=== PATIENT | female | born 1945 | race Caucasian/White ===

== ENCOUNTER 2017-05-07 11:11 | Outpatient (CLI) | payer MEDICARE | END 2017-05-07 11:12 | disposition home or self-care (01) | LOC: BICRAD 11:11 | PROVIDERS: ATTEND Nurse Practitioner Acute Care | DX: D45 Polycythemia vera (principal); F17.200 Nicotine dependence, unspecified, uncomplicated; R93.8 Abnormal findings on diagnostic imaging of other specified body structures; J98.59 Other diseases of mediastinum, not elsewhere classified; I70.90 Unspecified atherosclerosis; R06.02 Shortness of breath | CPT/HCPCS: 71046 ==

== ENCOUNTER 2018-02-26 08:02 | Day surgery (SDC) | payer MEDICARE ==
[2018-02-25 15:22] VITALS: BMI 30.2
[2018-02-26] MEDS ORDERED: CEFAZOLIN 2 GM/50 ML BAG ONE (08:52)
[2018-02-26] MEDS ORDERED: Fentanyl 100 MCG/2 ML VIAL ONE ×2 (09:07→11:16)
[2018-02-26] MEDS ORDERED: Midazolam HCl 2 mg/2 ml Vial ONE (09:07)
[2018-02-26 09:34] LABS: Hemoglobin 15.9 g/dL (12.0-16.0); Mean Corpuscular HGB CONC 31.3 g/dL (32.0-36.0); Mean Corpuscular Hemoglobin 25.7 pg (27.0-31.0); Mean Corpuscular Volume 82.1 fL (78.0-98.0); Mean Platelet Volume 8.3 fL (7.4-10.4); Platelet Count 564 thou/uL (130-400); RBC Distribution Width 15.8 % (11.5-14.5); Red Blood Cell (RBC) Count 6.19 mill/uL (4.20-5.40); White Blood Cell (WBC) Count 14.9 thou/uL (4.8-10.8)
[2018-02-26 09:36] LABS: Anion Gap 16 mmol/L (10-20); BUN (Urea Nitrogen) 21 mg/dL (9.8-20.1); Calc. Creatinine Clearance 52 mL/min (70-130); Calcium 9.6 mg/dL (7.8-10.44); Carbon Dioxide 20 mmol/L (23-31); Chloride 105 mmol/L (98-107); Estimated GFR-MDRD 51; Glucose 287 mg/dL (83-110); Potassium 5.3 mmol/L (3.5-5.1); Sodium 136 mmol/L (136-145)
[2018-02-26 09:44] LABS: Prothrombin Time 13.5 SEC (12.0-14.7)
[2018-02-26] MEDS ORDERED: Albuterol Sulfate 2.5 mg/3 ml Neb ONE (09:59)
--- NOTE | 2018-02-26 10:03 | RAD ---
PORTABLE CHEST: Indications: Pre-operative evaluation. Comparison: None available. FINDINGS: There is an abnormal soft tissue mass density seen in the paratracheal region on the right measuring 4.5 to 5.0 cm. There is a calcified granuloma in the peripheral right lung. The lung fitzgerald show no infiltrate or vascular congestion. Mild linear atelectasis in the left lung b ase is noted. Heart size is within normal range. Aortic calcification is prominent. There is a displaced fracture involving the proximal left humerus. IMPRESSION: 1. There is evidence of a soft tissue mass in the paratracheal region in the medial right upper chest . Recommend further evaluation with chest CT. 2. Displaced fracture proximal left humerus has been previously described. 3. Dr. Austin has been paged for notification at the time of this dictation. Code T. Findings discussed with Dr. Austin.
[2018-02-26] MEDS ORDERED: Ketorolac Tromethamine 30 MG/ML VIAL IVP PRN (10:09)
[2018-02-26] MEDS ORDERED: HYDROcodone/Acetaminophen 5/325 mg Tablet PO PRN ×2 (10:09)
[2018-02-26] MEDS ORDERED: Zolpidem Tartrate 5 MG TAB PO PRN (10:09)
[2018-02-26] MEDS ORDERED: Promethazine HCl 25 MG/ML VIAL IM PRN (10:09)
[2018-02-26] MEDS ORDERED: Ondansetron PF 4 MG/2 ML Vial IVP PRN (10:09)
[2018-02-26] MEDS ORDERED: Ropivacaine 0.2% 550 ML 550 ML NERVE BLCK SCH (10:09)
[2018-02-26] MEDS ORDERED: traMADol HCl 50 MG TAB PO PRN ×2 (10:09)
[2018-02-26] MEDS ORDERED: Fentanyl 100 MCG/2 ML VIAL IV PRN (10:13)
[2018-02-26] MEDS ORDERED: Insulin Regular 300 UNITS/3 ML VIAL SC SCH (10:15)
[2018-02-26] MEDS ORDERED: Insulin Regular 300 UNITS/3 ML VIAL ONE (10:25)
[2018-02-26] MEDS ORDERED: Albuterol Sulfate 2.5 mg/3 ml Neb NEB SCH (10:45)
[2018-02-26] MEDS ORDERED: HYDROcodone/Acetaminophen 5/325 mg Tablet ONE (14:31)
--- NOTE | 2018-02-26 14:37 | RAD ---
LEFT SHOULDER THREE VIEWS INTRAOPERATIVE FLUOROSCOPY: History: Shoulder fracture. FINDINGS: Intraoperative fluoroscopy is provided for internal fixation as performed by Dr. Mann. Spot fluo roscopic images show internal fixation hardware in anatomic alignment. Fluoro time: 14.4 seconds. POS: JOHNNY
--- NOTE | 2018-02-26 18:26 | OP ---
DATE OF PROCEDURE: 02/26/2018 PROCEDURE PERFORMED: Open reduction and internal fixation of left proximal humerus fracture. PREOPERATIVE DIAGNOSIS: Left three-part proximal humerus fracture. POSTOPERATIVE DIAGNOSIS: Left three-part proximal humerus fracture. COMPLICATIONS: None. ESTIMATED BLOOD LOSS: 100 mL. [employer]: Minerva Santoro PA-C. IMPLANTS: Synthes proximal humerus plate with locking and nonlocking screws. INDICATIONS: Ms. Fox is a 73-year-old female who fell. She fractured her proximal humerus. She was indicated for open reduction and internal fixation to restore the anatomy of the proximal humerus and promote healing. Risks have been reviewed in detail. She elected to proceed with the operation. DESCRIPTION OF PROCEDURE: Ms. Singh was identified in the preoperative holding area. Her correct extremity was marked. She was carried to the operating room. She was positioned supine. General anesthesia was induced. She was converted to the beach-chair position at 30 degrees. At this point, we prepped and draped the left upper extremity. We then began the procedure with a deltopectoral approach to the shoulder. We dissected down through the subcutaneous tissues to the deltopectoral interval which was incised. At this point, we exposed the underlying fracture fragments. The greater tuberosity was significantly displaced as well as the humeral neck fracture. We irrigated and removed hematoma as well as cleared the bony edges. At this point, the greater tuberosity fracture was reduced using a #5 Ethibond suture back into its anatomic position. We then reduced the anatomic neck fracture and surgical neck fracture. Next, we placed a plate along the lateral cortex. Multiple K-wires were placed, holding the plate as well as the bony reduction. We placed multiple locking and nonlocking screws. We reduced the fracture into its anatomic position as well along this process. We took images confirming plate placement. We then placed our final screws. We thoroughly irrigated with copious lavage. We placed the additional Ethibond suture into the rotator cuff and into the plate for fixation. Finally, closed with 0 Vicryl suture, 2-0 Vicryl suture, and bolivar for the skin. A sterile dressing was applied. The patient was taken to the recovery room in good condition. Job ID: [id number]
== END 2018-02-26 14:58 | disposition home or self-care (01) ==
LOC: SDC 08:02
PROVIDERS: ATTEND Orthopaedic Surgery
PROC: 0PSD04Z Reposition Left Humeral Head with Internal Fixation Device, Open Approach (ICD-10-PCS; principal; 2018-02-26)
DX: S42.252A Displaced fracture of greater tuberosity of left humerus, initial encounter for closed fracture (principal); G56.02 Carpal tunnel syndrome, left upper limb; E11.9 Type 2 diabetes mellitus without complications; I10 Essential (primary) hypertension; I25.10 Atherosclerotic heart disease of native coronary artery without angina pectoris; Z79.82 Long term (current) use of aspirin; Z79.02 Long term (current) use of antithrombotics/antiplatelets; Z79.84 Long term (current) use of oral hypoglycemic drugs; Z79.899 Other long term (current) drug therapy; Z95.5 Presence of coronary angioplasty implant and graft; Z98.890 Other specified postprocedural states; W19.XXXA Unspecified fall, initial encounter
CPT/HCPCS: 23630; 71045; 73060; 76001; 80048; 82962; 85027; 85610; 85730; 93005; 94640; A4306; C1713 ×3; 36416; 93010; J1815; J2250; J2795; J3010; J7611

== ENCOUNTER 2018-04-22 15:34 | Emergency (ER) | payer MEDICARE | END 2018-04-22 17:35 | disposition home health service (06) | LOC: ERS 15:34 | DX: S46.212A Strain of muscle, fascia and tendon of other parts of biceps, left arm, initial encounter (principal); M19.90 Unspecified osteoarthritis, unspecified site; E11.9 Type 2 diabetes mellitus without complications; F17.210 Nicotine dependence, cigarettes, uncomplicated; X50.1XXA Overexertion from prolonged static or awkward postures, initial encounter | CPT/HCPCS: 99283 ==

== ENCOUNTER 2018-04-23 15:07 | Outpatient (CLI) | payer MEDICARE ==
--- NOTE | 2018-04-23 17:40 | MRI ---
LEFT ELBOW MRI WITHOUT IV CONTRAST: 04/23/18 HISTORY: S46.212A - rupture of left biceps tendon. There is some very extensive perimuscular edematous change and posttraumatic fluid density along the entire course of the visualized biceps muscle and myotendinous region and including down somewhat anthony ng the biceps tendon. The biceps tendon itself however, appears intact without evidence for a biceps tendon tear. There is some fairly extensive subcutaneous edema or fluid. No evidence for abnormal mar row signal. The elbow joint itself appears intact, there is some increased signal at the common exten sor tendon insertion region evidence for some partial thickness undersurface tearing. Collateral liga ments appear intact. IMPRESSION: Very extensive subcutaneous and soft tissue edematous changes and swelling of the upper arm as well a s very extensive perimuscular posttraumatic fluid and swelling around the entire biceps muscle with s ome associated intramuscular abnormal signal, particularly extending into the myotendinous region. I favor this being an intramuscular/myotendinous strain. The biceps tendon distally is intact. If there is clinical evidence for biceps muscle dysfunction, consideration for evaluating the upper b iceps tendon and shoulder region might give additional information. Evidence for partial thickness un dersurface tearing and tendinopathy at the common extensor tendon insertion. Intact collateral ligame ntous complexes. No evidence for significant abnormal marrow signal. POS: [facility]
== END 2018-04-23 15:08 | disposition home or self-care (01) ==
LOC: MRI 15:07
PROVIDERS: ATTEND Orthopaedic Surgery
DX: S46.212A Strain of muscle, fascia and tendon of other parts of biceps, left arm, initial encounter (principal); R60.0 Localized edema; M79.89 Other specified soft tissue disorders

== ENCOUNTER 2020-06-24 14:29 | Outpatient (CLI) | payer MEDICARE ==
[2020-06-24 13:46] LABS: #Basophils 0.1 10x3/uL (0.0-0.2); #Eosinphils 0.3 10x3/uL (0.0-0.5); #Monocytes 0.7 10x3/uL (0.0-1.1); #Neutrophils 5.4 10x3/uL (1.5-8.4); %Basophils 1.5 % (0.0-2.0); %Eosinophils 3.3 % (0.0-6.0); %Lymphocytes 23.3 % (18.0-47.0); %Monocytes 7.8 % (0.0-10.0); %Neutrophils 63.3 % (40.0-75.0); Hemoglobin 13.5 g/dL (12.0-15.5); Mean Corpuscular HGB CONC 31.2 g/dL (32.0-36.0); Mean Corpuscular Hemoglobin 27.5 pg (27.0-33.0); Mean Corpuscular Volume 88.2 fl (81.6-98.3); Mean Platelet Volume 10.1 fl (7.4-10.4); Platelet Count 352 10x3/uL (150-450); RBC Distribution Width 17.6 % (11.5-14.5); Red Blood Cell (RBC) Count 4.91 10x6/uL (3.90-5.03); White Blood Cell (WBC) Count 8.6 10x3/uL (3.5-10.5)
[2020-06-24 14:03] LABS: Anion Gap 20 mmol/L (10-20); BUN (Urea Nitrogen) 28 mg/dL (9.8-20.1); Calc. Creatinine Clearance 0 mL/min (70-130); Calcium 9.6 mg/dL (7.8-10.44); Carbon Dioxide 21 mmol/L (23-31); Chloride 101 mmol/L (98-107); Glucose 176 mg/dL (83-110); Potassium 4.4 mmol/L (3.5-5.1); Sodium 138 mmol/L (136-145)
[2020-06-25 01:16] LABS: SARS-CoV-2 PCR by NAA Not Detected (NotDetected)
== END 2020-06-24 14:30 | disposition home or self-care (01) ==
LOC: LABBT 14:29
PROVIDERS: ATTEND Orthopaedic Surgery
DX: Z01.818 Encounter for other preprocedural examination (principal); G56.02 Carpal tunnel syndrome, left upper limb; Z20.822 Contact with and (suspected) exposure to COVID-19
CPT/HCPCS: 80048; 85025; 93005; U0003; U0005; 87635; 93010

== ENCOUNTER 2020-07-11 14:29 | Outpatient (CLI) | payer MEDICARE ==
[2020-07-12 01:18] LABS: SARS-CoV-2 PCR by NAA Not Detected (NotDetected)
== END 2020-07-11 14:30 | disposition home or self-care (01) ==
LOC: LABBT 14:29
PROVIDERS: ATTEND Orthopaedic Surgery
DX: Z01.812 Encounter for preprocedural laboratory examination (principal); G56.02 Carpal tunnel syndrome, left upper limb; Z20.822 Contact with and (suspected) exposure to COVID-19
CPT/HCPCS: U0003; U0005; 87635

== ENCOUNTER 2020-07-14 05:54 | Day surgery (SDC) | payer MEDICARE ==
[2020-07-13 09:51] VITALS: BMI 30.2
[2020-07-14] MEDS ORDERED: Lidocaine 1% w/Epinephrine 1:100K 20 ML VIAL ONE (06:41)
[2020-07-14] MEDS ORDERED: Fentanyl 100 MCG/2 ML VIAL ONE (07:26)
[2020-07-14] MEDS ORDERED: Ondansetron PF 4 MG/2 ML Vial ONE (07:32)
[2020-07-14] MEDS ORDERED: Dexamethasone 20 MG/5 ML VIAL ONE (07:32)
[2020-07-14] MEDS ORDERED: PROPOFOL 200 MG/20 ML VIAL ONE (07:32)
[2020-07-14] MEDS ORDERED: Lidocaine 1% PF 5 ML VIAL ONE (07:32)
== END 2020-07-14 10:10 | disposition home or self-care (01) ==
LOC: SDC 05:54
PROVIDERS: ATTEND Orthopaedic Surgery
PROC: 01N50ZZ Release Median Nerve, Open Approach (ICD-10-PCS; principal; 2020-07-14)
DX: G56.02 Carpal tunnel syndrome, left upper limb (principal); F17.210 Nicotine dependence, cigarettes, uncomplicated; I10 Essential (primary) hypertension; E11.9 Type 2 diabetes mellitus without complications; I25.10 Atherosclerotic heart disease of native coronary artery without angina pectoris; Z79.02 Long term (current) use of antithrombotics/antiplatelets; Z79.82 Long term (current) use of aspirin; Z79.84 Long term (current) use of oral hypoglycemic drugs; Z79.899 Other long term (current) drug therapy
CPT/HCPCS: J0690; J1100; J2405; J2704; J3010

== ENCOUNTER 2020-11-24 12:26 | Outpatient (CLI) | payer MEDICARE | END 2020-11-24 12:27 | disposition home or self-care (01) | LOC: BICCT 12:26 | PROVIDERS: ATTEND Internal Medicine Hematology & Oncology | DX: Z12.2 Encounter for screening for malignant neoplasm of respiratory organs (principal); F17.213 Nicotine dependence, cigarettes, with withdrawal; K76.9 Liver disease, unspecified; N28.9 Disorder of kidney and ureter, unspecified; Z90.49 Acquired absence of other specified parts of digestive tract | CPT/HCPCS: 71271 ==

== ENCOUNTER 2024-02-01 07:52 | Inpatient (IN) | payer MEDICARE ==
[2024-02-01] MEDS ORDERED: Dextrose 5% in Water 1,000 ML IV PRN (12:49)
[2024-02-01] MEDS ORDERED: Ondansetron ODT 4 MG TAB PO PRN (12:49)
[2024-02-01] MEDS ORDERED: Dextrose 50% Abboject 50 ML SYRINGE SLOW IVP PRN (12:49)
[2024-02-01] MEDS ORDERED: Senokot S 8.6-50 MG TAB PO PRN (12:49)
[2024-02-01] MEDS ORDERED: Glucagon 1 MG/ML KIT IM PRN (12:49)
[2024-02-01] MEDS ORDERED: Ketorolac Tromethamine 30 MG (1 mL) VIAL IVP PRN (12:49)
[2024-02-01] MEDS ORDERED: Albuterol 2.5 MG (3 mL) NEB NEB PRN (12:49)
[2024-02-01] MEDS ORDERED: Ondansetron PF 4 MG/2 ML Vial IVP PRN (12:49)
[2024-02-01] MEDS ORDERED: Acetaminophen 650 MG Suppository PR PRN (12:49)
[2024-02-01] MEDS ORDERED: Calcium Carbonate 500 MG ChewTAB PO PRN (12:49)
[2024-02-01] MEDS ORDERED: Nicotine 21 MG PATCH TD PRN (13:10)
[2024-02-01 13:52] VITALS: BMI 29.0
[2024-02-01] MEDS: methylPREDNISolone Sod Succ 40 MG VIAL IVP SCH (14:16)
[2024-02-01] MEDS: Enoxaparin 40 MG (0.4 mL) SYRINGE SC SCH (14:16)
[2024-02-01] MEDS: Ipratropium/Albuterol 3 ML NEB NEB SCH (14:54)
[2024-02-01 16:05] LABS: Legionella Urinary Ag Negative (Negative); Strep pneumo Urine Ag NEGATIVE (NEGATIVE)
[2024-02-01] MEDS: Insulin Lispro 100 UNIT/ML 10 ML VIAL SC PRN ×2 (17:15→21:42)
[2024-02-01] MEDS: Azithromycin 500 MG in Sodium Chloride 0.9% 250 ML 250 ML IVPB SCH (17:15)
[2024-02-01] MEDS: Acetaminophen 325 MG TAB PO PRN (17:16)
[2024-02-01] MEDS: Arformoterol 15 MCG/2 ML NEB NEB SCH (18:48)
[2024-02-01] MEDS: guaiFENesin ER 600 MG TAB PO SCH (21:42)
[2024-02-01] MEDS: Famotidine 20 MG TAB PO SCH (21:42)
[2024-02-02 04:27] LABS: #Basophils 0.09 10x3/uL (0.0-0.2); #Eosinophils Less than 0.03 10x3/uL (0.0-0.7); %Basophils 0.4 % (0.0-1.0); %Lymphocytes 3.2 % (21.0-51.0); %Monocytes 2.7 % (0.0-10.0); %Neutrophils 90.2 % (42.0-75.0); Hematocrit 44.8 % (36.0-47.0); Hemoglobin 14.4 g/dL (12.0-16.0); Mean Corpuscular HGB CONC 32.1 g/dL (32.0-36.0); Mean Corpuscular Hemoglobin 31.8 pg (27.0-31.0); Mean Corpuscular Volume 98.9 fL (78.0-98.0); Mean Platelet Volume 10.5 fL (7.4-10.4); Platelet Count 692 10x3/uL (130-400); RBC Distribution Width 16.9 % (11.5-14.5); Red Blood Cell (RBC) Count 4.53 mill/uL (4.20-5.40)
[2024-02-02 04:49] LABS: Anion Gap 14 mmol/L (10-20); BUN (Urea Nitrogen) 31 mg/dL (9.8-20.1); Calc. Creatinine Clearance 40 mL/min (70-130); Calcium 9.4 mg/dL (7.8-10.44); Carbon Dioxide 23 mmol/L (23-31); Chloride 104 mmol/L (98-107); Estimated GFR 46; Glucose 368 mg/dL (83-110); Potassium 4.8 mmol/L (3.5-5.1); Sodium 136 mmol/L (136-145)
[2024-02-02] MEDS: Enoxaparin 40 MG (0.4 mL) SYRINGE SC SCH (08:53)
[2024-02-02] MEDS: Famotidine 20 MG TAB PO SCH (08:54)
[2024-02-02] MEDS: Aspirin 81 mg Enteric Coated Tablet PO SCH (08:54)
[2024-02-02] MEDS: glipiZIDE XL 10 mg ER.TAB PO SCH (08:54)
[2024-02-02] MEDS: Clopidogrel Bisulfate 75 MG TAB PO SCH (08:54)
[2024-02-02] MEDS: Insulin Glargine 30 UNITS/0.3 ML VIAL SC SCH (11:11)
[2024-02-02] MEDS: Insulin Lispro 100 UNIT/ML 10 ML VIAL SC PRN (11:12)
[2024-02-02] MEDS: cefTRIAXone\\ROCEPHIN 2 GM in Sodium Chloride 0.9% 100 ML IVPB SCH (12:53)
[2024-02-02] MEDS: Atorvastatin Calcium 10 MG TAB PO SCH (17:20)
[2024-02-02] MEDS: Propranolol 10 MG TAB PO SCH (21:26)
[2024-02-03 05:22] LABS: Hemoglobin 14.1 g/dL (12.0-16.0); Mean Corpuscular HGB CONC 31.3 g/dL (32.0-36.0); Mean Corpuscular Hemoglobin 31.1 pg (27.0-31.0); Mean Corpuscular Volume 99.3 fL (78.0-98.0); Mean Platelet Volume 10.4 fL (7.4-10.4); Platelet Count 668 10x3/uL (130-400); RBC Distribution Width 16.9 % (11.5-14.5); Red Blood Cell (RBC) Count 4.53 mill/uL (4.20-5.40)
[2024-02-03 05:55] LABS: Hemoglobin A1c 7.2 % (4.0-6.0)
[2024-02-03 05:58] LABS: Anion Gap 15 mmol/L (10-20); BUN (Urea Nitrogen) 31 mg/dL (9.8-20.1); Calc. Creatinine Clearance 40 mL/min (70-130); Calcium 9.6 mg/dL (7.8-10.44); Carbon Dioxide 22 mmol/L (23-31); Chloride 106 mmol/L (98-107); Estimated GFR 45; Glucose 200 mg/dL (83-110); Potassium 4.9 mmol/L (3.5-5.1); Sodium 138 mmol/L (136-145)
[2024-02-03] MEDS: Mometasone 200 MCG/Formoterol 5 MCG 120 PUFF INHALER INH SCH (07:40)
[2024-02-03] MEDS: Losartan 25 MG TAB PO SCH (09:17)
[2024-02-03] MEDS: Amlodipine 10 MG TAB PO SCH (09:17)
[2024-02-03] MEDS: Insulin Glargine 30 UNITS/0.3 ML VIAL SC SCH (09:22)
[2024-02-03 16:47] VITALS: BMI 29.0
[2024-02-03] MEDS: Benzonatate 100 MG CAP PO PRN (20:43)
[2024-02-04 04:12] LABS: Hematocrit 46.6 % (36.0-47.0); Hemoglobin 14.7 g/dL (12.0-16.0); Mean Corpuscular HGB CONC 31.5 g/dL (32.0-36.0); Mean Corpuscular Hemoglobin 31.1 pg (27.0-31.0); Mean Corpuscular Volume 98.7 fL (78.0-98.0); Mean Platelet Volume 10.5 fL (7.4-10.4); Platelet Count 674 10x3/uL (130-400); RBC Distribution Width 16.7 % (11.5-14.5); Red Blood Cell (RBC) Count 4.72 mill/uL (4.20-5.40)
[2024-02-04 05:01] LABS: Anion Gap 13 mmol/L (10-20); BUN (Urea Nitrogen) 31 mg/dL (9.8-20.1); Calc. Creatinine Clearance 47 mL/min (70-130); Calcium 9.4 mg/dL (7.8-10.44); Carbon Dioxide 24 mmol/L (23-31); Chloride 102 mmol/L (98-107); Estimated GFR 55; Glucose 312 mg/dL (83-110); Potassium 4.4 mmol/L (3.5-5.1); Sodium 135 mmol/L (136-145)
[2024-02-04] MEDS: HumaLOG 300 UNITS/3 ML VIAL SC PRN (11:57)
[2024-02-04] MEDS: Ipratropium/Albuterol 3 ML NEB EZPAP SCH (14:27)
[2024-02-04] MEDS: Insulin Lispro 100 UNIT/ML 10 ML VIAL SC PRN (17:58)
[2024-02-04] MEDS: Guaifenesin DM 100-10/5 ML UDCUP PO PRN (20:37)
[2024-02-05 04:46] LABS: Hematocrit 47.8 % (36.0-47.0); Hemoglobin 15.1 g/dL (12.0-16.0); Mean Corpuscular HGB CONC 31.6 g/dL (32.0-36.0); Mean Corpuscular Hemoglobin 30.9 pg (27.0-31.0); Mean Platelet Volume 10.2 fL (7.4-10.4); Platelet Count 698 10x3/uL (130-400); RBC Distribution Width 17.1 % (11.5-14.5); Red Blood Cell (RBC) Count 4.88 mill/uL (4.20-5.40)
[2024-02-05 05:06] LABS: Anion Gap 14 mmol/L (10-20); BUN (Urea Nitrogen) 30 mg/dL (9.8-20.1); Calc. Creatinine Clearance 48 mL/min (70-130); Calcium 9.3 mg/dL (7.8-10.44); Carbon Dioxide 22 mmol/L (23-31); Chloride 104 mmol/L (98-107); Estimated GFR 57; Glucose 228 mg/dL (83-110); Sodium 135 mmol/L (136-145)
[2024-02-05] MEDS: methylPREDNISolone Sod Succ 40 MG VIAL IVP SCH (15:29)
[2024-02-05] MEDS: metFORMIN 500 MG TAB PO SCH (17:29)
[2024-02-06] MEDS: Propranolol HCl 20 MG TAB PO SCH (20:50)
[2024-02-06] MEDS: predniSONE 20 MG TAB PO SCH (20:50)
[2024-02-08] MEDS: Benzonatate 100 MG CAP PO SCH ×2 (11:11→14:09)
[2024-02-09 05:09] LABS: #Basophils 0.12 10x3/uL (0.0-0.2); %Basophils 0.5 % (0.0-1.0); %Eosinophils 1.3 % (0.0-10.0); %Lymphocytes 2.3 % (21.0-51.0); %Monocytes 5.2 % (0.0-10.0); %Neutrophils 86.1 % (42.0-75.0); Hematocrit 46.9 % (36.0-47.0); Mean Corpuscular Volume 93.8 fL (78.0-98.0); Mean Platelet Volume 10.9 fL (7.4-10.4); Platelet Count 682 10x3/uL (130-400)
[2024-02-09 05:28] LABS: Anion Gap 11 mmol/L (10-20); BUN (Urea Nitrogen) 31 mg/dL (9.8-20.1); Calc. Creatinine Clearance 52 mL/min (70-130); Calcium 9.1 mg/dL (7.8-10.44); Carbon Dioxide 22 mmol/L (23-31); Chloride 107 mmol/L (98-107); Estimated GFR 63; Glucose 150 mg/dL (83-110); Potassium 3.7 mmol/L (3.5-5.1); Sodium 136 mmol/L (136-145)
[2024-02-09] MEDS: Amoxicillin/Potassium Clav 875 MG TAB PO SCH (15:15)
[2024-02-09 15:25] VITALS: BP 151/74; TEMP 97.9
== END 2024-02-09 16:09 | disposition home or self-care (01) | DRG 189 ==
LOC: 2NO 11:23 → T4-A 02-05 19:43
PROVIDERS: ADMIT Internal Medicine; ATTEND Hospitalist
DX: J96.01 Acute respiratory failure with hypoxia (principal); J44.1 Chronic obstructive pulmonary disease with (acute) exacerbation; I10 Essential (primary) hypertension; D45 Polycythemia vera; E78.5 Hyperlipidemia, unspecified; I25.10 Atherosclerotic heart disease of native coronary artery without angina pectoris; M19.90 Unspecified osteoarthritis, unspecified site; Z90.49 Acquired absence of other specified parts of digestive tract; Z90.710 Acquired absence of both cervix and uterus; Z90.89 Acquired absence of other organs; Z79.82 Long term (current) use of aspirin; Z79.899 Other long term (current) drug therapy; Z79.4 Long term (current) use of insulin; E11.65 Type 2 diabetes mellitus with hyperglycemia; I73.9 Peripheral vascular disease, unspecified; D75.839 Thrombocytosis, unspecified
CPT/HCPCS: 36415; 36416; 71045; 71250; 80048; 83036; 85025; 85027; 87449; 87633; 87899; 94640; 97139; J0456; J0696; J1650; J1815; J2919; J7050; J7512; J7620

== ENCOUNTER 2024-03-22 20:13 | Inpatient (IN) | payer MEDICARE ==
[~2024-03-22 20:13] MED LIST: Iopamidol-370 76% 500 ML MDV (1 ML CHARGE) ONE
[2024-03-22 21:17] LABS: #Basophils 0.23 10x3/uL (0.0-0.2); %Basophils 1.7 % (0.0-1.0); %Eosinophils 1.4 % (0.0-10.0); %Lymphocytes 9.6 % (21.0-51.0); %Neutrophils 78.5 % (42.0-75.0); Hematocrit 53.8 % (36.0-47.0); Hemoglobin 16.8 g/dL (12.0-16.0); Mean Corpuscular HGB CONC 31.2 g/dL (32.0-36.0); Mean Corpuscular Hemoglobin 25.6 pg (27.0-31.0); Mean Corpuscular Volume 81.9 fL (78.0-98.0); Mean Platelet Volume 11.1 fL (7.4-10.4); Platelet Count 493 10x3/uL (130-400); RBC Distribution Width 19.9 % (11.5-14.5); Red Blood Cell (RBC) Count 6.57 mill/uL (4.20-5.40)
[2024-03-22 21:36] LABS: Troponin I 0.054 ng/mL (< 0.028)
[2024-03-22 21:38] LABS: ALT (SGPT) 15 U/L (8-55); AST (SGOT) 22 U/L (5-34); Albumin 3.2 g/dL (3.4-4.8); Alkaline Phosphatase 140 U/L (40-110); Anion Gap 18 mmol/L (10-20); BUN (Urea Nitrogen) 23 mg/dL (9.8-20.1); Bilirubin, Total 0.3 mg/dL (0.2-1.2); Calc. Creatinine Clearance 0 mL/min (70-130); Calcium 9.1 mg/dL (7.8-10.44); Carbon Dioxide 17 mmol/L (23-31); Chloride 101 mmol/L (98-107); Estimated GFR 33; Globulin 3.5 g/dL (2.4-3.5); Glucose 574 mg/dL (83-110); Magnesium 1.9 mg/dL (1.6-2.6); Potassium 4.6 mmol/L (3.5-5.1); Protein, Total 6.7 g/dL (5.8-8.1); Sodium 131 mmol/L (136-145)
[2024-03-22 22:24] LABS: Bacteria/HPF None Seen HPF (None Seen); Bilirubin Negative (Negative); Blood, Urine Negative (Negative); CAUTI Indications for Culture Dysuria,urgency,freq; Clarity Clear (Clear); Glucose, Urine (Dipstick) Greater than 1000 mg/dL (Negative); Ketone, Urine Negative (Negative); Leukocyte Negative Leu/uL (Negative); Nitrite Negative (Negative); Protein, Urine (Dipstick) 50 mg/dL (Neg-Trace); RBC/HPF 0-3 HPF (0-3); Specific Gravity, Urine 1.032 (1.002-1.036); Squamous Epithelial 0-3 HPF (0-3); Urobilinogen Normal mg/dL (Less than 2); WBC/HPF 0-3 HPF (0-3); pH, Urine 5.5 (5.0-9.0)
[2024-03-22 22:26] LABS: Urine Culture Reflex No No
[2024-03-22] MEDS ORDERED: Insulin Regular, Human 100 UNIT/ML 10 ML VIAL ONE (22:30)
[2024-03-23] MEDS ORDERED: Aspirin Chewable 81 MG TAB ONE (01:14)
[2024-03-23 01:58] LABS: Troponin I 0.077 ng/mL (< 0.028)
[2024-03-23] MEDS ORDERED: Calcium Carbonate 500 MG ChewTAB PO PRN (02:34)
[2024-03-23] MEDS ORDERED: Ondansetron PF 4 MG/2 ML Vial IVP PRN (02:34)
[2024-03-23] MEDS ORDERED: Ondansetron ODT 4 MG TAB PO PRN (02:34)
[2024-03-23] MEDS ORDERED: Acetaminophen 650 MG Suppository PR PRN (02:34)
[2024-03-23] MEDS ORDERED: Glucagon 1 MG/ML KIT IM PRN (02:35)
[2024-03-23] MEDS ORDERED: Dextrose 5% in Water 1,000 ML IV PRN (02:35)
[2024-03-23] MEDS ORDERED: Dextrose 50% Abboject 50 ML SYRINGE SLOW IVP PRN (02:35)
[2024-03-23 05:18] LABS: #Basophils 0.28 10x3/uL (0.0-0.2); %Basophils 2.1 % (0.0-1.0); %Eosinophils 1.8 % (0.0-10.0); %Lymphocytes 14.1 % (21.0-51.0); %Monocytes 4.5 % (0.0-10.0); %Neutrophils 72.7 % (42.0-75.0); Hematocrit 48.1 % (36.0-47.0); Hemoglobin 14.5 g/dL (12.0-16.0); Mean Corpuscular HGB CONC 30.1 g/dL (32.0-36.0); Mean Corpuscular Hemoglobin 25.2 pg (27.0-31.0); Mean Corpuscular Volume 83.5 fL (78.0-98.0); Mean Platelet Volume 10.4 fL (7.4-10.4); Platelet Count 447 10x3/uL (130-400); RBC Distribution Width 19.3 % (11.5-14.5); Red Blood Cell (RBC) Count 5.76 mill/uL (4.20-5.40)
[2024-03-23 05:34] LABS: Anion Gap 14 mmol/L (10-20); BUN (Urea Nitrogen) 19 mg/dL (9.8-20.1); Calc. Creatinine Clearance 48 mL/min (70-130); Calcium 8.4 mg/dL (7.8-10.44); Carbon Dioxide 16 mmol/L (23-31); Chloride 110 mmol/L (98-107); Estimated GFR 59; Glucose 250 mg/dL (83-110); Hemoglobin A1c 12.8 % (4.0-6.0); Potassium 3.8 mmol/L (3.5-5.1); Sodium 136 mmol/L (136-145)
[2024-03-23 05:39] LABS: Troponin I 0.088 ng/mL (< 0.028)
[2024-03-23] MEDS ORDERED: Clopidogrel Bisulfate 75 MG TAB ONE (09:27)
[2024-03-23] MEDS ORDERED: Losartan 25 MG TAB ONE (09:33)
[2024-03-23] MEDS ORDERED: Amlodipine 5 MG TAB ONE (09:33)
[2024-03-23] MEDS ORDERED: Insulin Lispro 100 UNIT/ML 10 ML VIAL ONE (09:36)
[2024-03-23] MEDS: Amlodipine 10 MG TAB PO SCH (09:47)
[2024-03-23] MEDS: metFORMIN 500 MG TAB PO SCH (09:47)
[2024-03-23] MEDS: Clopidogrel Bisulfate 75 MG TAB PO SCH (09:49)
[2024-03-23] MEDS: Losartan 25 MG TAB PO SCH (09:49)
[2024-03-23] MEDS ORDERED: Electrolyte Replacement Protocol 1 EACH FS PRN (10:37)
[2024-03-23] MEDS ORDERED: Electrolyte Replacement Protocol FS PRN (10:45)
[2024-03-23] MEDS: glipiZIDE XL 10 mg ER.TAB PO SCH (11:41)
[2024-03-23] MEDS: Propranolol 40 MG TAB PO SCH (11:42)
[2024-03-23] MEDS ORDERED: Magnesium 2 GM/50 ML BAG (IN WATER) ONE (11:44)
[2024-03-23] MEDS: Magnesium 2 GM/50 ML(in water) 2 GM in Premix 1 BAG IVPB SCH (11:57)
[2024-03-23] MEDS ORDERED: Ipratropium/Albuterol 3 ML NEB NEB PRN (17:04)
[2024-03-23] MEDS ORDERED: hydrALAZINE 25 MG TAB PO PRN (17:07)
[2024-03-23] MEDS ORDERED: Potassium Bicarbonate/Cit Ac 20 MEQ TAB ONE (17:38)
[2024-03-23] MEDS: Potassium Bicarbonate/Cit Ac 20 MEQ TAB PO SCH (17:45)
[2024-03-23] MEDS: Saxagliptin 2.5 MG TAB PO SCH (17:45)
[2024-03-23] MEDS: Insulin Lispro 100 UNIT/ML 10 ML VIAL SC PRN ×2 (17:46→21:03)
[2024-03-23 18:49] VITALS: BMI 27.2
[2024-03-23] MEDS: Atorvastatin Calcium 10 MG TAB PO SCH (20:58)
[2024-03-23] MEDS: Sodium Bicarbonate Tab 325 MG TAB PO SCH (21:01)
[2024-03-23] MEDS: Lactated Ringer's 500 ML IV SCH (23:05)
[2024-03-24 05:01] LABS: Anion Gap 12 mmol/L (10-20); BUN (Urea Nitrogen) 19 mg/dL (9.8-20.1); Calc. Creatinine Clearance 46 mL/min (70-130); Calcium 8.8 mg/dL (7.8-10.44); Carbon Dioxide 22 mmol/L (23-31); Chloride 107 mmol/L (98-107); Estimated GFR 59; Glucose 252 mg/dL (83-110); Magnesium 2.2 mg/dL (1.6-2.6); Phosphorus 2.4 mg/dL (2.3-4.7); Potassium 4.7 mmol/L (3.5-5.1); Sodium 136 mmol/L (136-145)
[2024-03-24 05:19] LABS: Hematocrit 49.2 % (36.0-47.0); Hemoglobin 14.8 g/dL (12.0-16.0); Mean Corpuscular HGB CONC 30.1 g/dL (32.0-36.0); Mean Corpuscular Volume 83.2 fL (78.0-98.0); Mean Platelet Volume 10.7 fL (7.4-10.4); Platelet Count 504 10x3/uL (130-400); RBC Distribution Width 19.6 % (11.5-14.5); Red Blood Cell (RBC) Count 5.91 mill/uL (4.20-5.40)
[2024-03-24 06:21] LABS: Band 6 % (5-11); Eosinophils 1 % (0-10); Large Platelets 13.9 % (0-5); Lymphocytes 4 % (21-51); Metamyelocyte 1 % (0-0); Neutrophil 82 % (42-75); Platelet Adequacy Comment Platelets Increased; Polychromasia SLIGHT = 2-3 cells HPF (0-2); Reactive Lymphocytes 3 % (0-10)
[2024-03-24] MEDS: Saxagliptin 2.5 MG TAB PO SCH (09:09)
[2024-03-24] MEDS: Insulin Lispro 100 UNIT/ML 10 ML VIAL SC PRN (12:08)
[2024-03-24] MEDS: Insulin Glargine 30 UNITS/0.3 ML VIAL SC SCH (17:42)
[2024-03-24] MEDS: Heparin 5,000 UNITS/ML VIAL SC SCH (20:38)
[2024-03-25 04:27] LABS: Hematocrit 46.5 % (36.0-47.0); Hemoglobin 13.8 g/dL (12.0-16.0); Mean Corpuscular HGB CONC 29.7 g/dL (32.0-36.0); Mean Corpuscular Volume 84.2 fL (78.0-98.0); Mean Platelet Volume 11.1 fL (7.4-10.4); Platelet Count 570 10x3/uL (130-400); RBC Distribution Width 19.4 % (11.5-14.5); Red Blood Cell (RBC) Count 5.52 mill/uL (4.20-5.40)
[2024-03-25 04:36] LABS: Anion Gap 11 mmol/L (10-20); BUN (Urea Nitrogen) 23 mg/dL (9.8-20.1); Calc. Creatinine Clearance 40 mL/min (70-130); Calcium 8.9 mg/dL (7.8-10.44); Carbon Dioxide 24 mmol/L (23-31); Chloride 107 mmol/L (98-107); Estimated GFR 50; Glucose 201 mg/dL (83-110); Potassium 4.6 mmol/L (3.5-5.1); Sodium 137 mmol/L (136-145)
[2024-03-25 06:03] LABS: Band 7 % (5-11); Eosinophils 7 % (0-10); Large Platelets 27.7 % (0-5); Lymphocytes 12 % (21-51); Metamyelocyte 1 % (0-0); Monocytes 4 % (0-10); Neutrophil 61 % (42-75); Platelet Adequacy Comment Platelets Increased; Polychromasia SLIGHT = 2-3 cells HPF (0-2); Reactive Lymphocytes 3 % (0-10); Smudge Cells 9.9 %; Vacuoles SLIGHT
[2024-03-25] MEDS: metFORMIN 500 MG TAB PO SCH (08:28)
[2024-03-25] MEDS ORDERED: Regadenoson 0.4 MG/5 ML SYRINGE ONE (09:49)
[2024-03-25 11:23] VITALS: BMI 27.5
[2024-03-25] MEDS: Acetaminophen 325 MG TAB PO PRN (11:56)
[2024-03-25] MEDS ORDERED: Glucagon 1 MG/ML KIT IM PRN (15:17)
[2024-03-25] MEDS ORDERED: Dextrose 50% Abboject 50 ML SYRINGE SLOW IVP PRN (15:17)
[2024-03-25] MEDS ORDERED: Dextrose 5% in Water 1,000 ML IV PRN (15:17)
[2024-03-25] MEDS: Doxycycline 100 MG in Sodium Chloride 0.9% 100 ML IVPB SCH (16:00)
[2024-03-25] MEDS: methylPREDNISolone Sod Succ 40 MG VIAL IVP SCH ×2 (16:00→21:12)
[2024-03-25] MEDS: Insulin Glargine 30 UNITS/0.3 ML VIAL SC SCH (21:13)
[2024-03-26 05:03] LABS: #Basophils 0.19 10x3/uL (0.0-0.2); #Eosinophils Less than 0.03 10x3/uL (0.0-0.7); %Basophils 1.1 % (0.0-1.0); %Eosinophils 0.1 % (0.0-10.0); %Lymphocytes 7.1 % (21.0-51.0); %Monocytes 0.9 % (0.0-10.0); %Neutrophils 86.6 % (42.0-75.0); Hematocrit 48.3 % (36.0-47.0); Hemoglobin 14.6 g/dL (12.0-16.0); Mean Corpuscular HGB CONC 30.2 g/dL (32.0-36.0); Mean Corpuscular Hemoglobin 25.2 pg (27.0-31.0); Mean Corpuscular Volume 83.4 fL (78.0-98.0); Mean Platelet Volume 11.2 fL (7.4-10.4); Platelet Count 662 10x3/uL (130-400); RBC Distribution Width 19.6 % (11.5-14.5); Red Blood Cell (RBC) Count 5.79 mill/uL (4.20-5.40)
[2024-03-26 05:15] LABS: Calc. Creatinine Clearance 42 mL/min (70-130); Estimated GFR 53
[2024-03-26 05:20] LABS: ALT (SGPT) 11 U/L (8-55); AST (SGOT) 15 U/L (5-34); Albumin 2.6 g/dL (3.4-4.8); Alkaline Phosphatase 120 U/L (40-110); Anion Gap 13 mmol/L (10-20); BUN (Urea Nitrogen) 24 mg/dL (9.8-20.1); Bilirubin, Total 0.3 mg/dL (0.2-1.2); Calcium 8.7 mg/dL (7.8-10.44); Carbon Dioxide 20 mmol/L (23-31); Chloride 106 mmol/L (98-107); Globulin 3.1 g/dL (2.4-3.5); Glucose 430 mg/dL (83-110); Potassium 5.4 mmol/L (3.5-5.1); Protein, Total 5.7 g/dL (5.8-8.1); Sodium 134 mmol/L (136-145)
[2024-03-26] MEDS: Insulin Glargine 30 UNITS/0.3 ML VIAL SC SCH (09:31)
[2024-03-26] MEDS: methylPREDNISolone Sod Succ 40 MG VIAL IVP SCH (20:49)
[2024-03-26] MEDS: Atorvastatin Calcium 40 MG TAB PO SCH (20:49)
[2024-03-27 05:00] LABS: Hematocrit 46.5 % (36.0-47.0); Hemoglobin 13.8 g/dL (12.0-16.0); Mean Corpuscular HGB CONC 29.7 g/dL (32.0-36.0); Mean Corpuscular Volume 84.2 fL (78.0-98.0); Mean Platelet Volume 10.6 fL (7.4-10.4); Platelet Count 658 10x3/uL (130-400); RBC Distribution Width 19.6 % (11.5-14.5); Red Blood Cell (RBC) Count 5.52 mill/uL (4.20-5.40)
[2024-03-27 05:25] LABS: ALT (SGPT) 8 U/L (8-55); AST (SGOT) 13 U/L (5-34); Albumin 2.6 g/dL (3.4-4.8); Alkaline Phosphatase 134 U/L (40-110); Anion Gap 13 mmol/L (10-20); BUN (Urea Nitrogen) 31 mg/dL (9.8-20.1); Bilirubin, Total 0.2 mg/dL (0.2-1.2); Calc. Creatinine Clearance 35 mL/min (70-130); Carbon Dioxide 19 mmol/L (23-31); Chloride 105 mmol/L (98-107); Estimated GFR 43; Globulin 2.9 g/dL (2.4-3.5); Glucose 402 mg/dL (83-110); Potassium 4.8 mmol/L (3.5-5.1); Protein, Total 5.5 g/dL (5.8-8.1); Sodium 132 mmol/L (136-145)
[2024-03-27 05:36] LABS: Anisocytosis SLIGHT = 6-15 cells HPF (0-5); Band 2 % (5-11); Hypochromia SLIGHT = 6-15 cells HPF (0-5); Lymphocytes 2 % (21-51); Monocytes 2 % (0-10); Neutrophil 94 % (42-75); Platelet Adequacy Comment Platelets Increased; Polychromasia SLIGHT = 2-3 cells HPF (0-2)
[2024-03-27] MEDS: methylPREDNISolone Sod Succ 40 MG VIAL IVP SCH (20:59)
[2024-03-28 05:02] LABS: Hematocrit 47.4 % (36.0-47.0); Hemoglobin 14.1 g/dL (12.0-16.0); Mean Corpuscular HGB CONC 29.7 g/dL (32.0-36.0); Mean Corpuscular Hemoglobin 24.9 pg (27.0-31.0); Mean Corpuscular Volume 83.7 fL (78.0-98.0); Mean Platelet Volume 10.7 fL (7.4-10.4); Platelet Count 650 10x3/uL (130-400); RBC Distribution Width 19.6 % (11.5-14.5); Red Blood Cell (RBC) Count 5.66 mill/uL (4.20-5.40)
[2024-03-28 05:20] LABS: ALT (SGPT) 13 U/L (8-55); AST (SGOT) 15 U/L (5-34); Albumin 2.7 g/dL (3.4-4.8); Alkaline Phosphatase 109 U/L (40-110); Anion Gap 13 mmol/L (10-20); BUN (Urea Nitrogen) 31 mg/dL (9.8-20.1); Bilirubin, Total 0.3 mg/dL (0.2-1.2); Calc. Creatinine Clearance 34 mL/min (70-130); Calcium 9.1 mg/dL (7.8-10.44); Carbon Dioxide 20 mmol/L (23-31); Chloride 103 mmol/L (98-107); Estimated GFR 41; Globulin 3.2 g/dL (2.4-3.5); Glucose 347 mg/dL (83-110); Potassium 4.8 mmol/L (3.5-5.1); Protein, Total 5.9 g/dL (5.8-8.1); Sodium 131 mmol/L (136-145)
[2024-03-28 05:30] LABS: Anisocytosis SLIGHT = 6-15 cells HPF (0-5); Band 3 % (5-11); Metamyelocyte 1 % (0-0); Monocytes 3 % (0-10); Neutrophil 93 % (42-75); Platelet Adequacy Comment Platelets Increased; Polychromasia SLIGHT = 2-3 cells HPF (0-2)
[2024-03-28 16:23] LABS: ALT (SGPT) 17 U/L (8-55); AST (SGOT) 20 U/L (5-34); Albumin 2.8 g/dL (3.4-4.8); Alkaline Phosphatase 109 U/L (40-110); Anion Gap 16 mmol/L (10-20); BUN (Urea Nitrogen) 34 mg/dL (9.8-20.1); Bilirubin, Total 0.3 mg/dL (0.2-1.2); Calc. Creatinine Clearance 40 mL/min (70-130); Calcium 9.1 mg/dL (7.8-10.44); Carbon Dioxide 19 mmol/L (23-31); Chloride 104 mmol/L (98-107); Estimated GFR 50; Globulin 3.1 g/dL (2.4-3.5); Glucose 371 mg/dL (83-110); Potassium 4.7 mmol/L (3.5-5.1); Protein, Total 5.9 g/dL (5.8-8.1); Sodium 134 mmol/L (136-145)
[2024-03-29 04:00] LABS: ALT (SGPT) 20 U/L (8-55); AST (SGOT) 23 U/L (5-34); Albumin 2.7 g/dL (3.4-4.8); Alkaline Phosphatase 111 U/L (40-110); Anion Gap 16 mmol/L (10-20); BUN (Urea Nitrogen) 35 mg/dL (9.8-20.1); Bilirubin, Total 0.3 mg/dL (0.2-1.2); Calc. Creatinine Clearance 38 mL/min (70-130); Calcium 9.2 mg/dL (7.8-10.44); Carbon Dioxide 18 mmol/L (23-31); Chloride 108 mmol/L (98-107); Estimated GFR 47; Globulin 3.1 g/dL (2.4-3.5); Glucose 184 mg/dL (83-110); Potassium 4.7 mmol/L (3.5-5.1); Protein, Total 5.8 g/dL (5.8-8.1); Sodium 137 mmol/L (136-145)
[2024-03-29 04:21] LABS: Hematocrit 50.3 % (36.0-47.0); Mean Corpuscular HGB CONC 29.8 g/dL (32.0-36.0); Mean Corpuscular Hemoglobin 24.8 pg (27.0-31.0); Mean Platelet Volume 10.8 fL (7.4-10.4); Platelet Count 638 10x3/uL (130-400); RBC Distribution Width 19.6 % (11.5-14.5); Red Blood Cell (RBC) Count 6.06 mill/uL (4.20-5.40)
[2024-03-29 05:46] LABS: Anisocytosis SLIGHT = 6-15 cells HPF (0-5); Band 3 % (5-11); Elliptocytes SLIGHT = 2-5 cells HPF (0-1); Large Platelets 4.9 % (0-5); Lymphocytes 2 % (21-51); Macrocytosis SLIGHT = 6-15 cells HPF (0-5); Metamyelocyte 1 % (0-0); Monocytes 4 % (0-10); Neutrophil 89 % (42-75); Nucleated RBC (Manual Ct) 2 % (0); Platelet Adequacy Comment Platelets Increased; Polychromasia SLIGHT = 2-3 cells HPF (0-2); Reactive Lymphocytes 1 % (0-10)
[2024-03-29 09:25] VITALS: TEMP 97.5
[2024-03-29 11:19] VITALS: BP 137/70
[2024-03-29] MEDS: predniSONE 20 MG TAB PO SCH (14:36)
== END 2024-03-29 15:35 | DRG 191 ==
LOC: ERS 20:13 → ERHOLD 03-23 01:05 → 2NO 03-23 18:31 → OBSVTOIN 03-24 08:35
PROVIDERS: ADMIT Student in an Organized Health Care Education/Training Program; ATTEND Internal Medicine
DX: J44.1 Chronic obstructive pulmonary disease with (acute) exacerbation (principal); E87.1 Hypo-osmolality and hyponatremia; N17.9 Acute kidney failure, unspecified; E87.20 Acidosis, unspecified; I13.0 Hypertensive heart and chronic kidney disease with heart failure and stage 1 through stage 4 chronic kidney disease, or unspecified chronic kidney disease; E11.65 Type 2 diabetes mellitus with hyperglycemia; I25.10 Atherosclerotic heart disease of native coronary artery without angina pectoris; E11.22 Type 2 diabetes mellitus with diabetic chronic kidney disease; E78.5 Hyperlipidemia, unspecified; F10.90 Alcohol use, unspecified, uncomplicated; E86.0 Dehydration; D45 Polycythemia vera; I50.9 Heart failure, unspecified; N18.30 Chronic kidney disease, stage 3 unspecified; E87.6 Hypokalemia; G25.0 Essential tremor; E11.51 Type 2 diabetes mellitus with diabetic peripheral angiopathy without gangrene; Z90.89 Acquired absence of other organs; Z90.710 Acquired absence of both cervix and uterus; Z90.49 Acquired absence of other specified parts of digestive tract; Z95.5 Presence of coronary angioplasty implant and graft; Z87.891 Personal history of nicotine dependence
CPT/HCPCS: 36415; 36416; 71045; 71275; 78452; 80048; 80053; 81001; 83036; 83735; 83880; 84100; 84484; 85025; 87428; 93005; 93017; 93306; 96374; 96375; A9502; G0378; J1644; J1815; J2785; J2919; J3475; J7120; J7512; Q9967

== ENCOUNTER 2024-04-10 12:28 | Emergency (ER) | payer MEDICARE ==
[2024-04-10] MEDS ORDERED: Iopamidol-370 76% 500 ML MDV (1 ML CHARGE) ONE (13:18)
[2024-04-10] MEDS ORDERED: Morphine 2 MG/ML VIAL ONE (13:44)
[2024-04-10 14:44] LABS: #Basophils 0.13 10x3/uL (0.0-0.2); %Basophils 0.6 % (0.0-1.0); %Eosinophils 0.7 % (0.0-10.0); %Lymphocytes 4.7 % (21.0-51.0); %Monocytes 2.6 % (0.0-10.0); %Neutrophils 89.4 % (42.0-75.0); Hematocrit 51.4 % (36.0-47.0); Hemoglobin 15.3 g/dL (12.0-16.0); Mean Corpuscular HGB CONC 29.8 g/dL (32.0-36.0); Mean Corpuscular Volume 80.6 fL (78.0-98.0); Mean Platelet Volume 10.6 fL (7.4-10.4); Platelet Count 545 10x3/uL (130-400); RBC Distribution Width 19.9 % (11.5-14.5); Red Blood Cell (RBC) Count 6.38 mill/uL (4.20-5.40)
[2024-04-10 15:25] LABS: ALT (SGPT) 9 U/L (Less than 34); AST (SGOT) 19 U/L (11-34); Alkaline Phosphatase 112 U/L (40-110); Anion Gap 14 mmol/L (10-20); BUN (Urea Nitrogen) 19 mg/dL (9.8-20.1); Bilirubin, Total 0.5 mg/dL (0.3-1.2); Calc. Creatinine Clearance 0 mL/min (70-130); Carbon Dioxide 25 mmol/L (23-31); Chloride 102 mmol/L (98-107); Estimated GFR 84; Glucose 297 mg/dL (83-110); Lipase 24 U/L (8-78); Potassium 4.1 mmol/L (3.5-5.1); Protein, Total 6.2 g/dL (5.8-8.1); Sodium 137 mmol/L (136-145)
[2024-04-10 15:27] LABS: Albumin 3.1 g/dL (3.1-4.5)
[2024-04-10 15:30] LABS: Globulin 3.1 g/dL (2.4-3.5)
== END 2024-04-10 18:36 | disposition short-term general hospital (02) ==
LOC: ERS 12:28
DX: T82.858A Stenosis of other vascular prosthetic devices, implants and grafts, initial encounter (principal); S36.039A Unspecified laceration of spleen, initial encounter; I10 Essential (primary) hypertension; E11.9 Type 2 diabetes mellitus without complications; J44.9 Chronic obstructive pulmonary disease, unspecified; F17.210 Nicotine dependence, cigarettes, uncomplicated; Z79.84 Long term (current) use of oral hypoglycemic drugs; Z79.02 Long term (current) use of antithrombotics/antiplatelets; Z79.899 Other long term (current) drug therapy
CPT/HCPCS: 74174; 80053; 83605; 83690; 85025; 96374; 99285; J2272; Q9967; 36415